=== PATIENT | male | born 2000 | race Caucasian/White ===

== ENCOUNTER 2025-11-23 18:28 | Observation (INO) | payer BC, SELFPAY ==
--- NOTE | ~2025-11-23 | CT_ITS ---
EXAMINATION: CT abdomen pelvis w con DATE: 11/24/2025 00:36 INDICATION: Right lower quadrant abdominal pain. TECHNIQUE: Computed tomography (CT) of the abdomen and pelvis was performed with 100 mL Omnipaque 350 intravenous contrast. Automated exposure control and iterative reconstruction technique were employed. The dose-length product was 949.44 mGy-cm. COMPARISON: None. FINDINGS: The visualized portions of the lung bases are clear without pneumonia or pleural effusion. The heart size is normal. No pericardial effusion. The liver, gallbladder, spleen, pancreas, adrenal glands, and right kidney are normal. There are cysts in left kidney measuring up to 1.7 cm. There is a left inguinal hernia containing fat. The appendix is fluid-filled and dilated to 13 mm with surrounding fat stranding, consistent with appendicitis. There is mild ileocolic lymphadenopathy, likely reactive. There is trace pelvic ascites. There is mild lumbar spondylosis. IMPRESSION: 1. Acute appendicitis. Reviewed, dictated and finalized at location E. CLERK IMPRESSION: 1. Acute appendicitis.
[2025-11-23 18:32] VITALS: BP 140/77; PULSE 92; RESP 16; TEMP 37.2; O2SAT 100
[2025-11-23 22:16] VITALS: BP 128/75; PULSE 88; RESP 16; TEMP 37.2; O2SAT 98
[2025-11-23 23:16] VITALS: BP 130/70; PULSE 84; RESP 18; O2SAT 100
[2025-11-23 23:30] LABS: Hematocrit 49.6 % (42.0-52.0); Hemoglobin 16.6 g/dL (14.0-18.0); Immature Granulocyte Percent A 0.3 % (0-0.5); Lymphocytes Absolute Auto 2.73 K/mm3 (0.9-3.2); Mean Corpuscular HGB Conc 33.5 g/dl (32-36); Mean Corpuscular Hemoglobin 28.7 pg (26-34); Mean Corpuscular Volume 85.8 fl (80-100); Nucleated Red Blood Cells Absolute Auto 0.000 K/mm3 (0.0-0.012); Nucleated Red Blood Cells Perc 0.0 % (0.0-0.2); Platelet Count Result 316 k/mm3 (150-375); Red Blood Count 5.78 M/mm3 (4.6-6.20); White Blood Count 13.8 K/mm3 (4.5-10.0)
[2025-11-23 23:39] LABS: Alanine Aminotransferase 34 U/L (6-50); Albumin Level 4.8 g/dL (3.5-5.1); Alkaline Phosphatase 109 U/L (38-126); Anion Gap 14 mmol/L (4-12); Aspartate Amino Transferase 28 U/L (17-59); Bilirubin,Total 0.9 mg/dL (0.2-1.3); Blood Urea Nitrogen 8 mg/dL (9-20); Calcium 9.9 mg/dL (8.4-10.2); Carbon Dioxide 29 mmol/L (22-30); Chloride 99 mmol/L (98-107); Estimated CRCL calculation 141 ml/min; Estimated Glomerular Filt Rate > 60; Glucose 100 mg/dL (65-110); Lipase 31 U/L (23-300); Potassium 4.7 mmol/L (3.4-5.0); Sodium 142 mmol/L (137-145); Total Protein 9.6 g/dL (6.3-8.2)
[2025-11-23 23:57] LABS: Add Urine Microscopic? YES; Appearance Urine Clear (Clear); Glucose Urine UA Negative (Negative); Leukocyte Esterase Ur Negative LEU/UL (Negative); Need Manual Microscopic Reviewed; Nitrate Urine Negative (Negative); Non Pathogenic Casts 0-2; Specific Grav Ur 1.028 (1.001-1.035)
[2025-11-24] VITALS (13 sets, daily range): BP systolic 116–151; BP diastolic 65–99; PULSE 84–102; RESP 16–22; TEMP 36.2–36.9; O2SAT 95–100; BMI 32.4
--- NOTE | 2025-11-24 00:08 | ED_ITS ---
HPI - Abdominal Pain General Chief Complaint: Abdominal Pain Stated Complaint: RLQ abd pain, constipation Time Seen by Provider: 11/24/25 00:01 History of Present Illness HPI narrative: 25-year-old otherwise healthy male presenting with right lower quadrant abdominal pain for last 3 days. Started his epigastrium years umbilical area and then migrated towards his right lower quadrant today. Has been constipated not able to use the bathroom despite MiraLax and other remedies. Tried Advil at home as he has been having some subjective fever and chills. No urinary complaints. Went to urgent care and was referred to the ER for imaging. No history of appendicitis or any abdominal surgeries. No traumatic injuries. Was otherwise in his normal state of health. No medications he is on and no allergies. Related Data Allergies Allergy/AdvReac Type Severity Reaction Status Date / Time No Known Allergies Allergy Mild Verified 11/23/25 18:29 Review of Systems 2 Review of Systems: As reviewed above in HPI All systems reviewed & are unremarkable except as noted in HPI and below Exam 2 Narrative: GENERAL: [Well-appearing, well-nourished, and in no acute distress.] HEAD: [Normocephalic, atraumatic.] EYES: [PERRLA and EOMI.] ENT: Nares clear, no rhinorrhea or epistaxis. Mucous membranes moist. NECK: Supple. CHEST: [Clear to auscultation. No respiratory distress.] HEART: [Regular rate and rhythm]. No murmur heard. [Normal peripheral pulses.] ABDOMEN: tender to palpation focal in the right lower quadrant but no rigidity, guarding, peritonitis, Rovsing or obturator sign. EXTREMITIES: Normal range of motion. [No edema.] SKIN: Warm, dry, no rash. NEURO: [No focal deficits]. Alert and oriented [x3.] PSYCH: [Normal mood and affect.] Course Vital Signs Vital signs: Vital Signs Temperature 37.2 C 11/23/25 18:32 Pulse Rate 92 11/23/25 18:32 Respiratory Rate 16 11/23/25 18:32 Blood Pressure 140/77 11/23/25 18:32 Pulse Oximetry 100 11/23/25 18:32 Oxygen Delivery Room Air 11/23/25 18:32 Temperature 37.2 C 11/23/25 22:16 Pulse Rate 85 11/24/25 04:04 Respiratory Rate 22 H 11/24/25 04:04 Blood Pressure 127/79 11/24/25 04:04 Pulse Oximetry 98 11/24/25 04:04 Oxygen Delivery Room Air 11/23/25 18:32 [facility] Narrative Medical decision making narrative: 25-year-old otherwise healthy male presenting with right lower quadrant abdominal pain for last 3 days. Started his epigastrium years umbilical area and then migrated towards his right lower quadrant today. Has been constipated not able to use the bathroom despite MiraLax and other remedies. Tried Advil at home as he has been having some subjective fever and chills. No urinary complaints. Went to urgent care and was referred to the ER for imaging. No history of appendicitis or any abdominal surgeries. No traumatic injuries. Was otherwise in his normal state of health. No medications he is on and no allergies. Examination shows right lower quadrant reproducible tenderness. He is afebrile with normal vital signs. Suspect gastritis, gastroenteritis, appendicitis, colitis, constipation. Will obtain laboratory studies and proceed from there. Patient states he was having symptoms in triage with nausea and pain but this is presently subsided he feels better without interventions. His labs do show an elevated white count and pain has been intermittent. CT scan with contrast obtained. Patient placed on monitor. CT scan independently reviewed and interpreted by radiology. He does have a enlarged appendix about 1.2 cm with surrounding fat stranding. Consistent with acute appendicitis. Remains comfortable did have some mild pain at alleviated by itself without intervention. Started on Zosyn and I discussed the case with Dr. Craig the general surgeon and patient was accepted to the hospital for procedural interventions today. Patient made NPO pain or and medications ordered as well as fluids and he was updated on the plan for admission for operative interventions. Admitted to [facility] bed at this time. Differential Diagnosis Differential Diagnosis: Suspect gastritis, gastroenteritis, appendicitis, colitis, constipation. Lab Data [facility] Lab Attestation statement: I personally reviewed the patient's lab results. 11/23/25 23:19 11/23/25 23:19 Labs: Lab Results 11/23/25 Range/Units 23:19 WBC 13.8 H (4.5-10.0) K/mm3 RBC 5.78 (4.6-6.20) M/mm3 Hgb 16.6 (14.0-18.0) g/dL Hct 49.6 (42.0-52.0) % MCV 85.8 (80-100) fl MCH 28.7 (26-34) pg MCHC 33.5 (32-36) g/dl RDW 12.3 (11.5-14.5) % Plt Count 316 (150-375) k/mm3 MPV 10.2 (7.4-10.4) fl Immature Gran % (Auto) 0.3 (0-0.5) % Neut % (Auto) 72.7 (45.5-73.1) % Lymph % (Auto) 19.8 (18.3-44.2) % [place] % (Auto) 6.5 (2.6-8.5) % Eos % (Auto) 0.4 (0-4.4) % Baso % (Auto) 0.3 (0.2-1.2) % Lymph # (Auto) 2.73 (0.9-3.2) K/mm3 [place] # (Auto) 0.9 H (0.1-0.6) K/mm3 Eos # (Auto) 0.1 (0-0.3) K/mm3 Baso # (Auto) 0.0 (0.0-0.1) K/mm3 Abs Immat Gran (auto) 0.04 H (0.00-0.031) K/mm3 Absolute Neuts (auto) 10.0 H (1.3-6.7) K/mm3 Absolute Nucleated RBC 0.000 (0.0-0.012) K/mm3 Nucleated RBC % 0.0 (0.0-0.2) % Sodium 142 (137-145) mmol/L Potassium 4.7 (3.4-5.0) mmol/L Chloride 99 (98-107) mmol/L Carbon Dioxide 29 (22-30) mmol/L Anion Gap 14 H (4-12) mmol/L BUN 8 L (9-20) mg/dL Creatinine 0.89 (0.7-1.3) mg/dL Estim Creat Clear Calc 141 ml/min Estimated GFR > 60 (59 - ) Glucose 100 (65-110) mg/dL Calcium 9.9 (8.4-10.2) mg/dL Total Bilirubin 0.9 (0.2-1.3) mg/dL AST 28 (17-59) U/L ALT 34 (6-50) U/L Alkaline Phosphatase 109 (38-126) U/L Total Protein 9.6 H (6.3-8.2) g/dL Albumin 4.8 (3.5-5.1) g/dL Lipase 31 (23-300) U/L Urine Color Dark yellow (Yellow) Urine Appearance Clear (Clear) Urine pH 5.5 (5.0-9.0) Ur Specific [place] 1.028 (1.001-1.035) Urine Protein Trace (Negative) mg/dL Urine Glucose (UA) Negative (Negative) mg/dL Urine Ketones Trace H (Negative) mg/dL Ur Blood (Man) Negative (Negative) Urine Nitrate Negative (Negative) Urine Bilirubin Negative (Negative) Urine Urobilinogen 1.0 (<2.0) mg/dL Add Ur Microanalysis Reviewed Leukocyte Esterase Rfl Negative (Negative) MARIUSZ/UL Urine RBC 0-2 (0-2) /hpf Urine WBC 0-5 (0-3) /hpf Ur Squamous Epith Cells None seen (Few) /hpf Urine Bacteria None seen /hpf Urine Casts 0-2 Urine Mucus Present /lpf Imaging Data Attestation: I personally reviewed and interpreted this imaging study as follows: My impression: acute appy Discharge Plan Discharge Clinical Impression: Acute appendicitis Patient Disposition: Still a Patient Condition: Stable Instructions: Antibiotic Form Patient Language: Ecuadorean Follow-up/Referrals: PHYSICIAN,MANAGER IMMUNOLOGY [Primary Care Provider, Internal Medicine] Time of Disposition: 04:30
--- OUTSIDE RECORDS SUMMARY | 2025-11-24 00:19 | XMS_ITS | Clinical Summary ---
Author Organization [facility] Address [address] [place] [address] Care Team Providers Care Livestock Farmers Name Role Phone Unavailable Primary Care Provider Unavailabl e Source Comments [facility],non-owned Affiliates and Associated Physician Practices is amultiple site organization consisting of ambulatory clinics and hospital sitesin [place], [place], [place] and [place]. This disclosure is being madepursuant to the Care Everywhere program and may not contain all information available regarding this patient. Last updated 18.[facility] Allergies No known active allergies Medications * Be aware that medications may not be up to date on this document. Alwaysverify current medications with the patient. 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 Gender Identity Not on file Sexual Orientation Not on file Last Filed Vital Signs Vital Sign Reading Time Taken Comments Blood Pressure 115/65 08/27/2013 5:59 PM CDT Pulse 80 08/27/2013 5:59 PM CDT Temperature 36.8 C (98.2 F) 08/27/2013 5:59 PM CDT Respiratory Rate 16 08/27/2013 5:59 PM CDT Oxygen Saturation - - Inhaled Oxygen Concentration - - Weight 56.6 kg (124 lb 12.5 oz) 08/27/2013 4:12 PM CDT Height - - Body Mass Index - - Plan of Treatment Health Maintenance Due Date Last Done Comments HIV SCREENING 2014 HPV VACCINE (1 - Male 3-dose series) 2014 HEPATITIS C SCREENING 05/27/2017 DTAP/TDAP/TD VACCINES (1 - Tdap) 2018 HEPATITIS B VACCINE (1 of 3 - 19+ 3-dose series) 2018 DEPRESSION SCREENING 11/26/2024 COVID-19 VACCINE (1 - 2024-2 6 season) 2025 INFLUENZA VACCINE (#1) 2025 ZOSTER VACCINE (1 of 2) 2049 HIB VACCINE Aged Out No longer eligi ble based on patient's age to complete this topic MENINGOCOCCAL (Group B) VACC INE SHARED DECISION-MAKING Aged Out No longer eligibl e based on patient's age to complete this topic MENINGOCOCCAL GROUPS A/C/Y/W VACCINE Aged Out No longer eligible b ased on patient's age to complete this topic PNEUMOCOCCAL VACCINE Aged Out No long er eligible based on patient's age to complete this topic Insurance MEDICAID - [place] [facility]
[2025-11-24] MEDS: HYDROcodone/acetaminophen (*CRX) 5-325 MG TABLET 1 TAB PO ×2 (04:56→15:38)
[2025-11-24] MEDS: PIPERACILLIN/TAZOBACTAM SOD 4.5 GM in SODIUM CHLORIDE 0.9% IV 100 ML 200 ML IVPB (04:56)
--- NOTE | 2025-11-24 05:00 | WPCEDHO ---
ED Hand Off Checklist All vitals saved: yes IV Site documented: yes All med administrations documented: yes Triage Note Triage Note Pt arrives w/ c/o RLQ abd pain x 11/23/25 18:32 3 days and constipation for 2 days. Pt reports that he was seen at when the pain was in the middle of his stomach and they said it was viral gastritis, but the pain has moved to RLQ. Allergies No Known Allergies Allergy (Mild, Verified 11/23/25 18:29) MOTHER DENIES PT HAS ALLERGIES Active Medications including assessments/comments Hydrocodone Bitart/Acetaminophen (Hydrocodone/Acetaminophen (*Crx) 5-325 Mg Tablet) 1 tab PO Q4H PRN PRN Reason: Pain Rated 4-6 Last Admin: 11/24/25 04:56 Dose: 1 tab Documented By: ANDRE MAR Pain Assessment Document 11/24/25 04:56 ANDRE (Rec: 11/24/25 04:56 ANDRE [id number]) Pain Evaluation Pain Evaluation Assessment Pain Scale Pain Scale Used Numeric (1 - 10) Order Parameters Order Parameters for Pain Level 4-6 (Moderate) Administering this Pain Med Self Report Pain Assessment Reported Pain Level 5 Pain Score Pain Score 5: Self Report Administered/Completed Medications Discontinued Medications Piperacillin Sod/Tazobactam (Sod 4.5 gm/ Sodium Chloride) 100 mls @ 200 mls/hr IVPB ONCE STA Stop: 11/24/25 04:29 Last Admin: 11/24/25 04:56 Dose: 200 mls/hr Documented By: ANDRE Interventions/Assessments IV / Saline Lock, Insert Start: 11/23/25 23:08 Freq: STAT Status: Active Protocol: Document 11/23/25 23:16 HNK (Rec: 11/23/25 23:17 HNK [id number]) IV Assessment Peripheral Access Left Antecubital IV Catheter Access Initiated IV Insertion Date 11/23/25 IV Insertion Time 23:16 Catheter Gauge 18 IV Insertion 1 Attempts Ultrasound Used for No Placement IV Site Assessment WNL IV Care and WNL Maintenance PA: Gastrointestinal Assessment Start: 11/23/25 18:29 Freq: Status: Active Protocol: Document 11/24/25 04:06 ACO (Rec: 11/24/25 04:06 ANDRE [id number]) GI Assessment Gastrointestinal Constipation,Pain Symptoms Description Tender Last Vital Signs Temperature 98.9 F 11/23/25 22:16 Pulse Rate 85 11/24/25 04:04 Respiratory Rate 22 H 11/24/25 04:04 Pulse Oximetry 98 11/24/25 04:04 Blood Pressure 127/79 11/24/25 04:04 Blood Pressure Mean 95 11/24/25 04:04 Blood Pressure Position Sitting 11/23/25 18:32 Oxygen Delivery Room Air 11/23/25 18:32 Weight 109.9 kg 11/23/25 18:32 Last Result - Abnormals Only WBC 13.8 K/mm3 (4.5-10.0) H 11/23/25 23:19 [place] # (Auto) 0.9 K/mm3 (0.1-0.6) H 11/23/25 23:19 Abs Immat Gran (auto) 0.04 K/mm3 (0.00-0.031) H 11/23/25 23:19 Absolute Neuts (auto) 10.0 K/mm3 (1.3-6.7) H 11/23/25 23:19 Anion Gap 14 mmol/L (4-12) H 11/23/25 23:19 BUN 8 mg/dL (9-20) L 11/23/25 23:19 Total Protein 9.6 g/dL (6.3-8.2) H 11/23/25 23:19 Urine Ketones Trace mg/dL (Negative) H 11/23/25 23:19 Most Recent Suicide Severity Rating Suicide Severity Rating NO RISK INDICATED 11/23/25 18:32
[2025-11-24] MEDS: LACTATED RINGERS 1,000 ML 125 ML IV CONT (05:53)
--- NOTE | 2025-11-24 10:31 | P.HP_ITS ---
H&P: HPI History of Present Illness Date/Time: 11/24/25 10:31 Chief Complaint: Abdominal pain Narrative: This is a 25-year-old man who presented to the ED last night with complaints of right lower quadrant abdominal pain. He initially noticed generalized abdominal pain 3 days ago, Sunday evening. It persisted throughout the day on Sunday and into the following morning his pain localized into the right lower quadrant. He had associated nausea, but no vomiting. He reports chills but no fever. He went to an urgent care Sunday and was told he had a stomach virus. He attempted to take MiraLax as he thought it could be related constipation. He had no relief in his symptoms and ultimately came into the ED last night due to his persistent abdominal pain. Workup showed leukocytosis and CT evidence of acute appendicitis without CT evidence of perforation or abscess. He was admitted and started on IV Zosyn. Denies any significant medical history. Previous surgeries include bilateral open inguinal hernia repair at age 7. Review of Systems Review of Systems: All systems reviewed & are unremarkable except as noted in HPI and below PMFSH Past Medical History Medical History No pertinent past medical history Surgical History Surgical History History of inguinal hernia repair, bilateral At age 7 Family History Family History Mother Cancer Grandparent Myocardial infarct Sibling Diabetes type 1 Social History Social History Smoking status: Never smoker Alcohol intake: never Substance use: never Substance use type: does not use Lack of Transportation: No Lack of Food: Never True Current Housing: I Have Housing Concerned About Future Housing: No Difficulty Paying Gas/Electric Bills: No Difficulty Paying for Meds: No Currently Unemployed: No Education: High School Diploma/GED Difficulty w/ Childcare or Family Care: No Spiritual care concerns: No Meds Home Medications and Allergies Home Medications ?Medication ?Instructions ?Recorded ?Confirmed ?Type No Home Medications 11/24/25 11/24/25 H istory Allergies Allergy/AdvReac Type Severity Reaction Status Date / Time No Known Allergies Allergy Mild Verified 11/24/25 05:42 Vital Signs Vital Signs - 24 hr 11/23/25 18:32 11/23/25 22:16 11/23/25 23:16 Temperature 98.9 F 98.9 F Pulse Rate 92 88 84 Respiratory Rate 16 16 18 Blood Pressure 140/77 128/75 130/70 Pulse Oximetry 100 98 100 Oxygen Delivery Room Air 11/24/25 04:04 11/24/25 05:42 11/24/25 06:00 Temperature 97.7 F Pulse Rate 85 85 85 Respiratory Rate 22 H 22 H 19 Blood Pressure 127/79 127/79 140/73 Pulse Oximetry 98 98 99 Oxygen Delivery Exam 2 Const: General: comfortable and no acute distress Nutritional Appearance: average body habitus Orientation/consciousness: patient oriented x3 HENMT: Head: normocephalic and atraumatic Ears: hearing grossly normal bilaterally Mouth: Yes moist mucous membranes Eyes: General: appearance normal, both eyes and all related structures Pupils: Equal, round and reactive pupils present Neck: Neck: normal visual inspection and full ROM Resp: Effort & Inspection: no respiratory distress Auscultation: clear to auscultation bilaterally Cardio: Rate: regular rate Rhythm: regular rhythm Peripheral pulses: Peripheral pulses 2+ throughout GI: Inspection: non-distended and no visible herniation GI Palp: Yes Soft to palpation, Yes Tenderness to palpation present (GI) (RLQ), No Guarding due to palpation present (GI), Yes No hepatosplenomegaly present, No Palpable mass present and No Rebound tenderness present Percussion: Yes normal to percussion Auscultation: normal bowel sounds Rectal Exam: deferred Skin: General skin exam: normal color Neuro: General: moves all extremities and no focal motor deficits Speech: normal speech Motor exam (neuro): 5/5 motor strength present throughout Extrem: General: normal to inspection and no edema Psych: Mental Status: mental status grossly normal Attitude: cooperative Insight: Good insight present (Psych) Judgement: Good judgement present (Psych) Results Labs Labs: Short CBC 11/23/25 Range/Units 23:19 WBC 13.8 H (4.5-10.0) K/mm3 Hgb 16.6 (14.0-18.0) g/dL Hct 49.6 (42.0-52.0) % Plt Count 316 (150-375) k/mm3 [facility] 11/23/25 23:19 Sodium 142 Potassium 4.7 Chloride 99 Carbon Dioxide 29 BUN 8 L Creatinine 0.89 Glucose 100 Calcium 9.9 Liver Function 11/23/25 Range/Units 23:19 Total Bilirubin 0.9 (0.2-1.3) mg/dL AST 28 (17-59) U/L ALT 34 (6-50) U/L Alkaline Phosphatase 109 (38-126) U/L Albumin 4.8 (3.5-5.1) g/dL Urine 11/23/25 Range/Units 23:19 Urine Color Dark yellow (Yellow) Urine Appearance Clear (Clear) Urine pH 5.5 (5.0-9.0) Ur Specific [place] 1.028 (1.001-1.035) Urine Protein Trace (Negative) mg/dL Urine Glucose (UA) Negative (Negative) mg/dL Assessment and Plan Assessment and plan (1) Acute appendicitis: Code(s): K35.80 - Unspecified acute appendicitis Status: Acute Assessment and Plan: * CT scan reviewed and discussed with the patient. There is evidence of acute appendicitis. No perforation or abscess evident on CT. We discussed both nonoperative treatment with IV antibiotics/monitoring versus proceeding with surgery. We discussed the risks of recurrence and treatment failure with the option of antibiotic therapy. I also discussed the details of a laparoscopic appendectomy, possible open, under general anesthesia that would be done by Dr. Craig. Description of the procedure, risks, benefits, alternatives, and expected recovery were discussed. He agrees to proceed with surgery. Keep NPO and continue IV antibiotics, IV fluids, and analgesics as needed pre- operatively. Proceed to the OR later today. Plan I have discussed the patient's case, recommendations, and treatment plan with Dr. Craig.
--- NOTE | 2025-11-24 10:40 | PC.NURSE ---
To surgery via wheelchair.
[2025-11-24] MEDS: PIPERACILLIN/TAZOBACTAM SOD 3.375 GM in SODIUM CHLORIDE 0.9% IV 50 ML 100 ML IVPB (11:06)
--- NOTE | 2025-11-24 11:22 | P.PNAN_ITS ---
Anes - Eval Pre Procedure Procedure: Operation Date: 11/24/25 16:00 Proposed Procedures p Laparoscopic Appendectomy - Polly Craig MD Date/Time: 11/24/25 11:22 Pre Op Diagnosis: Acute Appendicitis Patient Data Age: 25 Gender: M Height: 1.83 m Weight: 108.5 kg Last Vital Signs Temp 98.4 F 11/24/25 10:55 Pulse 84 11/24/25 10:55 Resp 16 11/24/25 10:55 BP 128/65 11/24/25 10:55 Pulse Ox 96 11/24/25 10:55 O2 Del Method Room Air 11/24/25 10:55 Allergies Allergy/AdvReac Type Severity Reaction Status Date / Time No Known Allergies Allergy Mild Verified 11/24/25 05:42 Home Medications ?Medication ?Instructions ?Recorded ?Confirmed ?Type No Home Medications 11/24/25 11/24/25 H istory Laboratory Tests 11/23/25 23:19 WBC 13.8 H K/mm3 (4.5-10.0) RBC 5.78 M/mm3 (4.6-6.20) Hgb 16.6 g/dL (14.0-18.0) Hct 49.6 % (42.0-52.0) MCV 85.8 fl (80-100) MCH 28.7 pg (26-34) MCHC 33.5 g/dl (32-36) RDW 12.3 % (11.5-14.5) Plt Count 316 k/mm3 (150-375) MPV 10.2 fl (7.4-10.4) Immature Gran % (Auto) 0.3 % (0-0.5) Neut % (Auto) 72.7 % (45.5-73.1) Lymph % (Auto) 19.8 % (18.3-44.2) [place] % (Auto) 6.5 % (2.6-8.5) Eos % (Auto) 0.4 % (0-4.4) Baso % (Auto) 0.3 % (0.2-1.2) Lymph # (Auto) 2.73 K/mm3 (0.9-3.2) [place] # (Auto) 0.9 H K/mm3 (0.1-0.6) Eos # (Auto) 0.1 K/mm3 (0-0.3) Baso # (Auto) 0.0 K/mm3 (0.0-0.1) Abs Immat Gran (auto) 0.04 H K/mm3 (0.00-0.031) Absolute Neuts (auto) 10.0 H K/mm3 (1.3-6.7) Absolute Nucleated RBC 0.000 K/mm3 (0.0-0.012) Nucleated RBC % 0.0 % (0.0-0.2) Sodium 142 mmol/L (137-145) Potassium 4.7 mmol/L (3.4-5.0) Chloride 99 mmol/L (98-107) Carbon Dioxide 29 mmol/L (22-30) Anion Gap 14 H mmol/L (4-12) BUN 8 L mg/dL (9-20) Creatinine 0.89 mg/dL (0.7-1.3) Estim Creat Clear Calc 141 ml/min Estimated GFR > 60 (59 - ) Glucose 100 mg/dL (65-110) Calcium 9.9 mg/dL (8.4-10.2) Total Bilirubin 0.9 mg/dL (0.2-1.3) AST 28 U/L (17-59) ALT 34 U/L (6-50) Alkaline Phosphatase 109 U/L (38-126) Total Protein 9.6 H g/dL (6.3-8.2) Albumin 4.8 g/dL (3.5-5.1) Lipase 31 U/L (23-300) Urine Color Dark yellow (Yellow) Urine Appearance Clear (Clear) Urine pH 5.5 (5.0-9.0) Ur Specific [place] 1.028 (1.001-1.035) Urine Protein Trace mg/dL (Negative) Urine Glucose (UA) Negative mg/dL (Negative) Urine Ketones Trace H mg/dL (Negative) Ur Blood (Man) Negative (Negative) Urine Nitrate Negative (Negative) Urine Bilirubin Negative (Negative) Urine Urobilinogen 1.0 mg/dL (<2.0) Add Ur Microanalysis Reviewed Leukocyte Esterase Rfl Negative MARIUSZ/UL (Negative) Urine RBC 0-2 /hpf (0-2) Urine WBC 0-5 /hpf (0-3) Ur Squamous Epith Cells None seen /hpf (Few) Urine Bacteria None seen /hpf Urine Casts 0-2 Urine Mucus Present /lpf Patient hx anesthesia problems: none Family hx anesthesia problems: none Results Review: All pre-operative results and documents have been reviewed as part of the pre- operative evaluation. [facility] Past Medical History Medical History Obesity (BMI 30-39.9) No pertinent past medical history Surgical History Surgical History History of inguinal hernia repair, bilateral At age 7 Family History Family History Mother Cancer Grandparent Myocardial infarct Sibling Diabetes type 1 Social History Social History Smoking status: Never smoker Alcohol intake: never Substance use: never Substance use type: does not use Lack of Transportation: No Lack of Food: Never True Current Housing: I Have Housing Concerned About Future Housing: No Difficulty Paying Gas/Electric Bills: No Difficulty Paying for Meds: No Currently Unemployed: No Education: High School Diploma/GED Difficulty w/ Childcare or Family Care: No Spiritual care concerns: No Exam Day of Procedure 11/24/25 11:22 Patient weight: obese Heart: regular rate and rhythm Lungs: clear to auscultation Airway: Mallampati scale class II Neurological: alert and oriented Other findings: ASA 2, General with standard monitoring
--- NOTE | 2025-11-24 11:43 | WPDHPUPDATE1 ---
History and Physical Update Update Date/Time: 11/24/25 11:43 History and Physical has been reviewed, including an updated exam of the patient. There are NO changes in the patient's condition. Risks, benefits, and alternatives have been discussed and questions answered. Patient agrees to proceed with procedure.
--- NOTE | 2025-11-24 13:09 | S_PTH ---
PATIENT: Samuel Pena LOC: [id number] U#:[id number] AGE/SX: 25/M ROOM: 302 RE11/24/[address]: Polly Craig MD : 2000 BED: 01 DIS: 11/24/2025 SPEC #: [id number] RECD: 11/24/25 13:33 STATUS: ANTONIO REQ #: [id number] BEVERLEY: 11/24/25 13:[address]: Polly Craig DEPT: [facility] Surgical RECD BY: Mitch Medrano ENTERED: 11/24/25 13:33 SP TYPE: Surgical OTHR DR: Glenroy Pearson MD LEAN FACILITATOR PHYSICIAN Usman Gamboa MD Tissues: A - Appendix Procedures: Hematoxylin and Eosin Stain Gross and Microscopic Level 3
[2025-11-24] MEDS: BUPIVACAINE/EPINEPHRINE 0.5% 30 ML VIAL INFILTRATE (13:12)
[2025-11-24] MEDS: LACTATED RINGERS 1,000 ML 30 ML IV CONT ×2 (13:43)
--- NOTE | 2025-11-24 13:47 | W.PM.PROC2 ---
Procedure Note - Detailed Date of Procedure 11/24/25 Pre-op Diagnosis Acute Appendicitis Post-op Diagnosis Same Procedure Performed laparoscopic appendectomy Surgeon Polly Craig MD Anesthesia General and Local Indications 25 y/o M presenting to ED c acute appendicitis Findings acute appendicitis no evidence of perforation Description of Procedure The patient was taken to the operating room and placed in the supine position. After adequate induction of general anesthesia, the patient was prepped and draped in the normal sterile fashion. A time-out was then done to verify the patient's identity, as well as the procedure being performed. I began by making a 5 mm incision in the infraumbilical region, through this a Veress needle was placed in the peritoneal cavity. CO2 gas was then insufflated and after adequate pneumoperitoneum was achieved the Veress needle was removed. Then placed a 5 mm Optiview trocar under direct visualization into the peritoneal cavity. I then insufflated through this trocar site and the endoscope was placed into the trocar. Under direct visualization, placed 2 further 5 mm suprapubic port as well as an additional 12 mm port in the left lower abdomen. At this point identified the cecum, I retracted the cecum both medially and superiorly allowing me to expose the appendix. The appendix was noted to be very dilated and inflamed. The appendix was noted to be very adherent to the right lateral sidewall as well as the ileum. I was able to bluntly dissect the appendix from these adhesions. I then was able to locate the base of the appendix with the cecum. I created a window with the [place] dissector between the appendix itself and the mesoappendix. I then transected the mesoappendix with a white vascular staple load. The Endo-UNRA was then reloaded with a blue staple load and I transected the base of the appendix. Once the specimen was completely detached, an endo-pouch was placed into the 12 mm port site and the specimen was removed through the endo-pouch. The appendiceal specimen will be sent to pathology for further review. I then copiously irrigated the right lower quadrant. Hemostasis was noted at both staple lines no other pathology was seen in this area. I then moved the camera to the suprapubic port to check our its port of entry. No iatrogenic injury or other pathology was noted in the upper abdomen. I then closed the 12 mm port site with a Leonard code and 0 Vicryl suture under direct visualization. At this point, the abdomen was desufflated and all ports were removed. All port sites were closed with 4-O Monocryl subcuticular suture. Dermabond was placed on all wounds. The patient tolerated the procedure well and was extubated in the operating room postop. He will be sent to the recovery room in stable condition. Estimated Blood Loss 10 Drains No Packing No Pathology Yes Complications No immediate complications Condition Stable Disposition PACU [facility] Billing Surgery - Charge Forward: Surgery Billing
[2025-11-24] MEDS: fentaNYL CITRATE INJ (*CRX) 100 MCG/2 ML VIAL 25 MCG IV PUSH ×8 (14:05→14:31)
--- NOTE | 2025-11-25 12:28 | P.DS_ITS ---
DS: Admitting Diagnosis Discharge Date 11/24/25 Admitting Diagnosis Acute appendicitis DS: Discharge Diagnosis Discharge Diagnosis (1) Acute appendicitis: Code(s): K35.80 - Unspecified acute appendicitis Status: Acute Assessment and Plan: status post appendectomy, doing well postoperatively, home with postop instructions and p.o. analgesia, follow-up 2 weeks DS: Summary Hospital Course Reason for hospitalization: acute appendicitis Hospital Course: The patient is a 25-year-old male presenting to the emergency department with acute appendicitis. The patient was admitted to the Surgical Service, made NPO, and started on IV antibiotics. Upon evaluation and discussion, the decision was made to proceed with urgent appendectomy. The patient was taken to the operating room and laparoscopic appendectomy was performed. Please see full operative report for details of that procedure. Postoperatively, the patient did well was transferred back to the surgical floor. He was able to tolerate a bland diet and was out bed and ambulating without issue. This time he will be sent home with p.o. analgesia and postoperative instructions. He will follow up with me in 2 weeks. Status at Discharge Functional status at discharge: independent ambulation Overall status at discharge: patient is back to baseline Time Spent with Patient Time attestation: Total time spent providing and/or coordinating discharge services: Time spent: Less than 30 minutes Exam Const: General: cooperative, comfortable and no acute distress Resp: Auscultation: clear to auscultation bilaterally Cardio: Rate: regular rate Rhythm: regular rhythm GI: Inspection: normal to inspection, distended and incision GI Palp: Yes abdominal tenderness and Yes Soft to palpation DS: Data Data Completed and Pending Pending studies at discharge: Pending at discharge 11/24/25 13:09 Surgical [PTH] Routine Discharge Plan Discharge Attending physician on discharge: Polly Craig Consulting providers: Glenroy Pearson; Leora Arredondo; Maynor Cook Jr.; Malcolm Aquino V. Discharging Clinician: Polly Craig Anticipated Discharge Date/Time: 11/24/25 16:00 Patient Disposition: Home Activity: as tolerated Diet: as tolerated Wound Care Instructions: incision open to air Discharge Instructions: DISCHARGE INSTRUCTION SHEET FOR HERNIA, GALLBLADDER AND APPENDIX SURGERIES DR. CRAIG PATIENT TO TAKE HOME 1. May shower in 24 hours, no soaking in bath x 2weeks. 2. Call office for: * Wound increasingly painful or bleeding * Vomiting * Fever of greater than 101 degrees 3. If no bowel movement for three days, take 1 oz. (30 ml) Milk of Magnesia or MiraLax 17g 1 to 2 times daily. 4. No heavy lifting > 10-15 pounds x 6 weeks for hernia repairs and 2 weeks for laparoscopic cholecystectomy or appendectomy. 5. No driving for 3 days or while taking narcotic pain medications. 6. Ice to surgical site for 48 hours (30 min on, then 30 min off). 7. Up walking 10-30 minutes three times per day. 8. Resume previous home medications. 9. Follow-up 10-14 days in office for wound check or as previously scheduled. ([phone]) 10. Oral pain medications prescription to be sent to pharmacy. Take Tylenol 500mg every 6 hours and Ibuprofen 600mg every 6 hours for the first 2 days, then as needed. 11. NUTRITION: Start out by drinking fluids and increase your diet as tolerated. If you experience nausea, try dry toast, crackers, and 7-UP. If nausea or vomiting persists, contact your surgeon?s office. 12. Gallbladders-Low Fat Diet for 2 weeks (send care note of low fat diet) 13. Inguinal Hernias-wear scrotal support for 48 hours 14. Abdominal Hernias-if sent home with abdominal binder, wear for the first 2 weeks (may remove to shower or at night to sleep). Revised 11/2020 Patient Instructions: Antibiotic Form Patient Language: Kinyarwanda Stand Alone Forms: General Discharge Information Follow-up/Referrals: Polly Craig MD [Physician, General Surgery] - 2 Weeks Discharge Medications: New hydrocodone-acetaminophen 5-325 mg tablet 1 tablet PO Q6H PRN (Reason: pain) Qty: 20 0RF Date of admission: 11/24/25 04:04 Primary Care Provider: PHYSICIAN,EQUAL OPPORTUNITY REPRESENTATIVE Admitting Provider: Polly Craig Attending physician on admission: Polly Craig Condition: Stable
== END 2025-11-24 18:45 | disposition home or self-care (01) ==
LOC: ANHED 11-24 04:30 → ANH3MEDSUR 11-24 07:33
PROVIDERS: Admitting Provider Surgery; Emergency Provider Student in an Organized Health Care Education/Training Program; Visit Provider Surgery
PROC: 0DTJ4ZZ Resection of Appendix, Percutaneous Endoscopic Approach (ICD-10-PCS; CPT 44970; principal; 2025-11-24 16:00)
DX: K35.80 Unspecified acute appendicitis (principal)
CPT/HCPCS: 44970; 36415; 74177; 80053; 81001; 83690; 85025; 88304; 96374; 96376; 99285; A9270; G0378; J1100; J2003; J2250; J2543; J2704; J3010; J7030; J7120; Q9967